=== PATIENT | female | born 2005 | race Hispanic/Latino ===

== ENCOUNTER 2024-07-07 10:51 | Day surgery (SDC) | payer OTHER ==
[2024-07-07] VITALS (10 sets, daily range): BP systolic 91–123; BP diastolic 40–82; PULSE 51–79; RESP 16–20; TEMP 97.3–208.6
[~2024-07-07] VITALS: Ht 165.1 cm; Wt 81.6 kg
[2024-07-07] MEDS: 0.9%NACL 1000ML 1,000 ML IV ONE (11:31)
[2024-07-07] MEDS ORDERED: LIDOCAINE PF 100MG/5ML (2%) SYRINGE 5ML ONE (13:25)
[2024-07-07] MEDS ORDERED: proPOFol 10 MG/ML 20ML VIAL IV ONE ×3 (13:25→13:51)
== END 2024-07-07 15:02 | disposition home or self-care (01) ==
LOC: ENDO 10:51 → DAH 10:51 → ENDO 15:02
PROVIDERS: ATTEND Internal Medicine Gastroenterology
DX: K62.5 Hemorrhage of anus and rectum (principal); K21.00 Gastro-esophageal reflux disease with esophagitis, without bleeding; K63.5 Polyp of colon; K64.0 First degree hemorrhoids; K29.50 Unspecified chronic gastritis without bleeding; K59.00 Constipation, unspecified; R14.0 Abdominal distension (gaseous); E66.9 Obesity, unspecified; Z79.899 Other long term (current) drug therapy; Z68.29 Body mass index [BMI] 29.0-29.9, adult; Z86.16 Personal history of COVID-19; Z83.3 Family history of diabetes mellitus
CPT/HCPCS: 84703; 36415; 45385; 43239; 82948; 88305; 88312; J7030 ×2; J2003; J2704 ×3; A4620; A4215 ×2; A4223; A4222; A4221; A4663; A4606; 80053; 84439; 84443; 85025; J3490